=== PATIENT | female | born 1955 | race African-American/Black ===

== ENCOUNTER 2021-02-11 09:31 | Emergency (ER) | payer BC ==
[2021-02-11 09:41] VITALS: BP 127/86; PULSE 89; TEMP 98.1; BMI 25.4
== END 2021-02-11 11:53 | disposition home or self-care (01) ==
LOC: JER 09:31
DX: R09.81 Nasal congestion (principal); Z20.822 Contact with and (suspected) exposure to COVID-19
CPT/HCPCS: 87804; 87807; 99283-25; C9803; U0003; U0005